=== PATIENT | female | born 1985 ===

== ENCOUNTER 2020-02-03 07:38 | Inpatient (IN) ==
[~2020-02-03 07:38] MED LIST: Famotidine 20 MG/2 ML VIAL IVP PRN; Metoclopramide 10 MG/2 ML VIAL IVP PRN; Ondansetron 4 MG/2 ML VIAL IVP PRN
[2020-02-03] MEDS ORDERED: Ringers Solution, Lactated 1,000 ML ONE (07:39)
[2020-02-03] MEDS ORDERED: *HR* FentaNYL (PF) 100 MCG/2 ML VIAL ONE (07:45)
[2020-02-03] MEDS ORDERED: Bupivacaine-MPF 0.25% 10 ML VIAL ONE (07:45)
[2020-02-03] MEDS ORDERED: Epidural Premix (fent/bupiv) 110 ML EP ONE (08:15)
[2020-02-03 08:18] LABS: Basophils % 0.3 %; Eosinophils # 0.1 K/mcL (0.0-0.6); Eosinophils % 0.7 %; Hematocrit 37.6 % (35.3-44.9); Hemoglobin 13.2 g/dL (11.5-15.4); Immature Granulocytes % 0.3 % (0-4); Lymphocytes # 2.3 K/mcL (0.6-4.6); Lymphocytes % 19.2 %; Mean Corpuscular HGB Conc 35.1 g/dL (31.6-35.5); Mean Corpuscular Hemoglobin 33.4 pg (28.0-33.3); Mean Corpuscular Volume 95.2 fL (83.0-100.0); Mean Platelet Volume 12.1 fL (9.4-12.4); Monocytes # 0.8 K/mcL (0.0-1.3); Neutrophils # 8.6 K/mcL (1.6-8.9); Platelet Count 225 K/mcL (140-400); Red Blood Count 3.95 M/mcL (3.82-4.97); Red Cell Distribution Width 12.6 % (11.5-14.5); Segmented Neutrophils % 72.5 %; White Blood Count 11.9 K/mcL (4.3-11.1)
[2020-02-03] MEDS ORDERED: EPHEDrine 50 MG/ML VIAL IVP PRN (08:24)
[2020-02-03 08:28] LABS: Amphetamine Screen,Urine Negative ng/mL (Cutoff=1000); Barbiturate Screen,Urine Negative ng/mL (Cutoff=200); Benzodiazepines Screen,Urine Negative ng/mL (Cutoff=200); Cannabinoid Screen,Urine Negative ng/mL (Cutoff = 50); Cocaine Screen,Urine Negative ng/mL (Cutoff= 300); Opiate Screen,Urine Negative ng/mL (Cutoff=300); Phencyclidine Screen,Urine Negative ng/mL (Cutoff=25)
[2020-02-03] MEDS ORDERED: Epidural Premix (fent/bupiv) 110 ML EP SCH (08:30)
[2020-02-03] MEDS ORDERED: SUMAtriptan succinate 25 MG TABLET PO PRN ×2 (08:46→16:48)
[2020-02-03] MEDS ORDERED: *HR* Buprenorphine HCl 8 MG TAB.SUBL SL SCH (09:00)
[2020-02-03] MEDS: Ringers Solution, Lactated 1,000 ML IVC SCH ×2 (09:18→09:19)
[2020-02-03] MEDS ORDERED: Lanolin 7 G OINT...G. TP PRN (16:48)
[2020-02-03] MEDS ORDERED: Oxytocin 20 units/ LR 1000 mL 20 UNIT/1,000 ML BAG IVC SCH (16:48)
[2020-02-03] MEDS ORDERED: Measles/Mumps/Rubella Vacc 0.5 ML VIAL SQ PRN (16:48)
[2020-02-03] MEDS: Ibuprofen 600 MG TABLET PO SCH (17:22)
[2020-02-03] MEDS: Acetaminophen 325 MG TABLET PO SCH (17:23)
[2020-02-03] MEDS: *HR* Buprenorphine HCl 8 MG TAB.SUBL SL SCH (20:27)
[2020-02-04] MEDS: Prenatal Vit/FA 1 EACH TABLET PO SCH (08:20)
[2020-02-04] MEDS: *HR* Buprenorphine HCl 8 MG TAB.SUBL SL SCH ×2 (08:20→21:13)
[2020-02-04] MEDS: Ibuprofen 600 MG TABLET PO SCH ×4 (08:21→21:13)
[2020-02-04] MEDS: Acetaminophen 325 MG TABLET PO SCH ×4 (08:22→21:12)
[2020-02-05] MEDS: Acetaminophen 325 MG TABLET PO SCH (07:12)
[2020-02-05] MEDS: Ibuprofen 600 MG TABLET PO SCH (07:12)
[2020-02-05 07:46] VITALS: BP 114/77
[2020-02-05] MEDS: Prenatal Vit/FA 1 EACH TABLET PO SCH (08:15)
[2020-02-05] MEDS: *HR* Buprenorphine HCl 8 MG TAB.SUBL SL SCH (08:16)
[2020-02-05 20:07] LABS: HCV Quant Log NOT DETECTED log IU/mL
[2020-02-06 11:45] LABS: HCV Quant Interpretation NOT DETECTED (Not Detected)
== END 2020-02-05 13:00 | disposition home or self-care (01) | DRG 560 ==
LOC: 1NENULAB → 1NENUOBS 15:24
PROVIDERS: ADMIT Obstetrics & Gynecology; ATTEND Obstetrics & Gynecology